=== PATIENT | male | born 1985 | race Caucasian/White ===

== ENCOUNTER 2016-06-06 13:14 | Emergency (ER) | payer SELFPAY ==
[~2016-06-06] VITALS: Ht 162.6 cm; Wt 56.0 kg
[2016-06-06 13:16] VITALS: BP 114/57; PULSE 76; RESP 15; TEMP 97.5; O2SAT 98
[2016-06-06] MEDS ORDERED: CEPH-460 PO (14:26)
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
[2016-06-06] MEDS ORDERED: TETANUS/DIPHTHERIA TOXOID ADULT 0.5 ML VIAL IM ONE (14:30)
== END 2016-06-06 15:13 | disposition home or self-care (01) ==
LOC: NEPB 13:14
DX: L03.113 Cellulitis of right upper limb (principal); Z72.0 Tobacco use; F10.10 Alcohol abuse, uncomplicated; Z23 Encounter for immunization
CPT/HCPCS: 10060; 90471; 90714; 96372; 99283; J0696